=== PATIENT | male | born 1985 | race Caucasian/White ===

== ENCOUNTER 2019-04-27 22:01 | Emergency (ER) | payer SELFPAY ==
[2019-04-27 22:03] VITALS: BP 121/77; PULSE 90; RESP 17; TEMP 36.4; O2SAT 97; BMI 22.8
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
[2019-04-27 22:29] VITALS: PULSE 82
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
[2019-04-27] MEDS: HYDROcodone-acetaminophen 7.5-325 mg Tablet 1 TAB PO (22:45)
[2019-04-28 00:03] VITALS: BP 122/70; PULSE 88; RESP 16; TEMP 36.4; O2SAT 97
== END 2019-04-28 00:04 | disposition home or self-care (01) ==
PROVIDERS: Emergency Provider Physician Assistant; Family Provider Family Medicine; PCP Family Medicine
DX: S80.811A Abrasion, right lower leg, initial encounter (principal); T14.8XXA Other injury of unspecified body region, initial encounter; F17.200 Nicotine dependence, unspecified, uncomplicated; R40.2412 Glasgow coma scale score 13-15, at arrival to emergency department; V13.4XXA Pedal cycle driver injured in collision with car, pick-up truck or van in traffic accident, initial encounter; Y92.410 Unspecified street and highway as the place of occurrence of the external cause
CPT/HCPCS: 70450; 73502; 73590; 99281; 99283

== ENCOUNTER 2019-04-30 15:56 | Emergency (ER) | payer SELFPAY ==
[2019-04-30 16:10] VITALS: BP 121/67; PULSE 78; RESP 16; TEMP 36.4; O2SAT 99; BMI 22.8
[2019-04-30 16:27] VITALS: RESP 16
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
[2019-04-30] MEDS: HYDROcodone-acetaminophen 5-325 mg Tablet 1 TAB PO (17:06)
[2019-04-30 17:07] VITALS: PULSE 67; RESP 15; O2SAT 96
== END 2019-04-30 17:08 | disposition home or self-care (01) ==
PROVIDERS: Emergency Provider Emergency Medicine; Family Provider Family Medicine; PCP Family Medicine
DX: S80.12XA Contusion of left lower leg, initial encounter (principal); F17.200 Nicotine dependence, unspecified, uncomplicated; V13.4XXA Pedal cycle driver injured in collision with car, pick-up truck or van in traffic accident, initial encounter
CPT/HCPCS: 73562; 73590; 99281; 99283

== ENCOUNTER 2019-05-11 17:17 | Emergency (ER) | payer SELFPAY ==
[2019-05-11 17:29] VITALS: BP 73/50; PULSE 60; RESP 16; TEMP 36.4; O2SAT 98; BMI 21.2
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
[2019-05-11 17:43] VITALS: BP 94/63
--- NOTE | 2019-05-11 17:43 | PC.NURSE ---
Pts blood pressure 94/54
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
[2019-05-11] MEDS: acetaminophen 500 mg Tablet 1000 MG PO (20:04)
[2019-05-11 20:09] VITALS: BP 92/48; PULSE 73; RESP 16; O2SAT 98
== END 2019-05-11 20:13 | disposition home or self-care (01) ==
PROVIDERS: Emergency Provider Physician Assistant; Family Provider Family Medicine; PCP Family Medicine
DX: S49.92XA Unspecified injury of left shoulder and upper arm, initial encounter (principal); F17.200 Nicotine dependence, unspecified, uncomplicated; V18.0XXA Pedal cycle driver injured in noncollision transport accident in nontraffic accident, initial encounter
CPT/HCPCS: 12345; 73030; 99281; 99283

== ENCOUNTER 2019-07-23 11:49 | Emergency (ER) | payer SELFPAY ==
--- NOTE | 2019-07-23 11:52 | XR_ITS ---
WS: [id number] SHOULDER LEFT TECHNIQUE: 3 views of the left shoulder CLINICAL INFORMATION: injury COMPARISON: May 11, 2019 FINDINGS: Mild widening of the AC joint measuring 8 mm consistent with ligamentous injury. This is increased si nce May 11, 2019. No acute fractures. Normal visualized left humerus and glenohumeral joint. IMPRESSION: Mild widening of the AC joint consistent with ligamentous injury. No acute fractures.
[2019-07-23 12:10] VITALS: BP 124/77; PULSE 84; RESP 16; TEMP 36.6; O2SAT 97; BMI 24.3
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
--- NOTE | 2019-07-23 14:40 | DCPLANNER ---
loss control manager was asked to schedule a follow up appointment with ortho. loss control manager called the ortho clinic, spoke with Pat, gave clinic patients information. loss control manager was told that patients information would be printed and reviewed. Clinic will call caseworker protective services and patient with appointment information.
[2019-07-23 14:58] VITALS: BP 109/70; PULSE 75; RESP 18; O2SAT 99
--- NOTE | 2019-07-29 13:57 | DCPLANNER ---
Addendum entered by Arin Peterson 08/06/19 15:27: Patient did not attend appointment scheduled fro 07.30.19 with ortho. Original Note: Patient has a follow up appointment scheduled for Tuesday, July 30, [address] at 8:[address] Gallegos. Clinic will call patient with appointment information.
== END 2019-07-23 14:43 | disposition home or self-care (01) ==
PROVIDERS: Emergency Provider Physician Assistant
DX: S43.102A Unspecified dislocation of left acromioclavicular joint, initial encounter (principal); V19.9XXA Pedal cyclist (driver) (passenger) injured in unspecified traffic accident, initial encounter; F17.210 Nicotine dependence, cigarettes, uncomplicated
CPT/HCPCS: 12345; 73030; 99281; 99282

== ENCOUNTER 2020-10-15 05:35 | Emergency (ER) | payer SELFPAY ==
[2020-10-15 05:50] VITALS: BP 136/99; PULSE 91; RESP 17; TEMP 36.6; O2SAT 98; BMI 22.8
--- NOTE | 2020-10-15 05:58 | ED_ITS ---
HPI - Dental/Oral General: Chief complaint: Dental/Oral Stated complaint: Right Lower Jaw Swollen Time Seen by Provider: 10/15/20 05:58 History of Present Illness: HPI Narrative: Mr. Cordova is a 34-year-old gentleman with significant past medical history of lymphoma in remission who presents emergency department due to facial swelling. Onset was subacute approximately 1 day ago without known provoking factor. There is no known facial trauma. He has painful swelling which limits jaw opening on the right jaw. He endorses associated generalized malaise but no specific fevers. He has pain that radiates towards the right eye. Overall the intensity symptoms is moderate to severe. He has tried home medications without significant relief. No difficulty swallowing. No voice changes. He does have poor dentition and reports history of dental abscesses. No other specific exacerbating or alleviating factors Review of Systems General: Reports: 10 or more systems reviewed and unremarkable except in HPI and below Narrative: CONSTITUTIONAL: denies fever, weakness. Does have generalized malaise. EYES -mild right eye pain from radiation, denies loss of vision EARS -see HPI CARDIOVASCULAR - denies chest pain and palpitations RESPIRATORY - denies shortness of breath and cough GASTROINTESTINAL - denies abdominal pain, no nausea vomiting, no changes in bowel habits GENITOURINARY - denies dysuria or urinary frequency MUSCULOSKELETAL- denies deformity or pain SKIN - denies rashes or new changed skin lesions NEUROLOGIC - denies focal weakness or sensory changes HEMATOLOGIC/LYMPHATIC - denies easy bruising or lymphadenopathy. [facility] ED PFS: Medical History (Updated 10/15/20 @ 08:19 by Bob Piña MD) Lymphoma Social History Smoking and tobacco status: current every day smoker Physical Exam Narrative: EXAM NARRATIVE: GENERAL/CONSTITUTIONAL -mildly ill-appearing. Uncomfortable due to pain Eyes - PERRL, no conjunctival injection ENMT - Atraumatic external nose and ears. Moist mucous membranes. There is marked asymmetry about the mandibular region. Intraorally if there is extremely poor dentition. There is a area of induration, swelling, and likely abscess along the right posterior mandible however it becomes contiguous with the mandibular angle and the exact borders are somewhat unclear. There is no evidence of peritonsillar abscess. There is no evidence of boggy induration or other concerning signs of Ludewig's. NECK - supple. trachea midline CARDIOVASCULAR - regular rate and rhythm. Peripheral pulses 2+ and equal RESPIRATORY -clear to auscultation bilaterally. No retractions or accessory muscle use. ABDOMEN/GI - Nontender/Nondistended. No tenderness to percussion or evidence of peritonitis MSK - Extremities without obvious deformity or tenderness to palpation SKIN - Warm, Dry NEURO - alert and appropriately oriented. strength and sensation intact. Moves all extremities equally. PSYCH - Appropriate mood and affect Course ED course: - Patient was seen and evaluated by me at bedside - Patient placed on cardiac monitors, IV access obtained - Initial evaluation notable for facial swelling of the right side the face with mild trismus, there is prominence of the soft tissues along the right gingival b order adjacent to the molars. There is marked poor dentition. - I ordered a contrasted CT scan study and labs however the patient adamantly refused IV access. - Imaging notable for no definitive drainable fluid collection - Upon serial reexamination after treatment the patient was mildly improved with analgesia - Based on patient history, evaluation, labs, and imaging as interpreted the most likely cause of the patient's condition is cellulitis/dental infection. - I discussed with the patient that without labs and a contrasted CT study I cannot completely evaluate his condition and that there were inherent risks including significant clinical worsening up to . He verbalized understanding and wished to continue with no IV access or labs. He is competent to make this decision regarding his health care at this time. - First dose of antibiotics ordered here. - The results of ED evaluation were discussed with the patient including prescriptions and/or symptomatic cares including appropriate and responsible use, followup plan, and return precautions. The patient verbalized understanding and felt safe for discharge. - Patient discharged in satisfactory condition. Vital Signs: Vital signs: Vital Signs Temperature 97.8 F 10/15/20 05:50 Pulse Rate 74 10/15/20 08:30 Respiratory Rate 16 10/15/20 08:30 Blood Pressure 151/102 10/15/20 08:30 Pulse Oximetry 99 10/15/20 08:30 [facility] - Dental/Oral Medical Records: Attestation: I reviewed the patient's medical records. Lab Data: Attestation: I reviewed the patient's lab results. Discharge Plan Discharge Patient Disposition: Home Clinical Impression: Dental infection Condition: Stable Prescriptions: New Augmentin 875-125 mg tablet 1 tab PO BID 14 Days Qty: 28 RF: 0 oxycodone 5 mg capsule 5 mg PO Q6H PRN (Reason: pain) Qty: 7 RF: 0 No Action tramadol 50 mg tablet 50 mg PO Q6H PRN (Reason: pain) Qty: 14 RF: 0 Discharge Orders: Discharge ED (Routine); Ordered 10/15/20 Ordered By: Bob Piña Discharge Diet: Usual diet Discharge Activity: Resume usual activity Patient Instructions: Dental Caries (ED), Cellulitis (ED), Opioid Safety Activity Restrictions/Additional Instructions: Thank you for visiting the emergency department. You were seen and evaluated for facial swelling and pain. The cause of this is likely to be infection related to poor oral health. There is no drainable fluid collection. You will be given a prescription for antibiotics and pain control. You may use Tylenol and ibuprofen or other NSAIDs however please do not exceed the daily recommended dosage. Please follow-up within the next few days with the dentist. Please follow-up with your primary care provider. Please return to the emergency department if you experience worsening her symptoms, increase spread, difficulty swallowing, voice changes, difficulty breathing, uncontrolled pain or symptoms, failure to improve, or anything else that you are concerned about and feel needs emergency department evaluation. We recommended lab work and a contrasted IV however you declined IV. You may return to the emergency department for any reason anytime. Coding Level of Care Code ED Toxicologist for Tessa Bowen
--- NOTE | 2020-10-15 06:04 | CTR_ITS ---
PROCEDURE INFORMATION: Exam: CT Neck Without Contrast Exam date and time: 10/15/2020 6:04 AM Age: 34 years old Clinical indication: Other: RT jaw pain; Additional info: Facial swelling, concern for deep tracking infection TECHNIQUE: Imaging protocol: Computed tomography images of the neck without contrast. Total images: 258 Radiation optimization: All CT scans at this facility use at least one of these dose optimization techniques: automated exposure control; mA and/or kV adjustment per patient size (includes targeted exams where dose is matched to clinical indication); or iterative reconstruction. COMPARISON: CT neck con [id number] 06/08/2017 10:49 PM RADIATION DOSE METRICS: Total DLP (mGy-cm): 401.8 FINDINGS: Paranasal sinuses: Benign mucous retention cyst in the left maxillary paranasal sinus. Nasopharynx: Unremarkable. Dental: Odontogenic disease, including periapical abscess formation adjacent to tooth roots. Oropharynx: Mildly enlarged tonsils. Hypopharynx: Unremarkable. Larynx: Unremarkable. Normal epiglottis. Retropharyngeal space: No prevertebral/retropharyngeal pathology. Submandibular/Parotid glands: Normal. Glands are normal in size. Thyroid: Normal. No enlarged or calcified nodules. Lymph nodes: Unremarkable. No lymphadenopathy. Trachea: Visualized trachea is unremarkable. Lungs: Mild centrilobular emphysematous changes are present. Bones/joints: Unremarkable. No acute fracture. Soft tissues: Soft tissue swelling and fatty stranding noted adjacent to the right mandible. CT/CT neck con [id number] IMPRESSION: 1. Soft tissue swelling and fatty stranding noted adjacent to the right mandible. 2. Odontogenic disease, including periapical abscess formation adjacent to tooth roots. 3. Mildly enlarged tonsils. 4. Mild centrilobular emphysematous changes are present. Radiation Dose CTDIVOL = (mGy): DLP = 401.8 (mGy-cm)
[2020-10-15] MEDS: oxyCODONE 5 mg IR Tab/Cap PO (07:05)
[2020-10-15 07:07] VITALS: BP 146/90; PULSE 89; RESP 18; O2SAT 98
[2020-10-15] MEDS: amoxicillin-clav 875-125 mg Tablet 1 TAB PO (08:24)
[2020-10-15 08:30] VITALS: BP 151/102; PULSE 74; RESP 16; O2SAT 99
== END 2020-10-15 08:31 | disposition home or self-care (01) ==
PROVIDERS: Emergency Provider Emergency Medicine
DX: K04.7 Periapical abscess without sinus (principal); Z85.72 Personal history of non-Hodgkin lymphomas; F17.210 Nicotine dependence, cigarettes, uncomplicated
CPT/HCPCS: 70490; 99283

== ENCOUNTER 2021-01-17 13:16 | Emergency (ER) | payer SELFPAY ==
[2021-01-17 13:20] VITALS: BP 119/76; PULSE 94; RESP 15; TEMP 36.7; O2SAT 98; BMI 21.2
--- NOTE | 2021-01-17 13:22 | US_ITS ---
WS: [id number] SCROTAL ULTRASOUND EXAMINATION CLINICAL INFORMATION: pain COMPARISON: None. FINDINGS: TESTES Normal in size and echotexture, without focal lesion. Color Doppler: Normal color Doppler flow pattern. Right testes size: 4.3 cm x 3.4 cm x 2.7 cm. Left testes size: 4.2 cm x 3.1 cm x 2.2 cm. EPIDIDYMIDES Enlarged right epididymis with increased vascularity compatible with epididymitis. Small left epididymal cysts. Right epididymis size: 1.3 cm x 1.6 cm x 1.3 cm. Left epididymitis size: 0.9 cm x 0.8 cm x 0.9 cm. HYDROCELE Small bilateral VARICOCELE None. OTHER FINDINGS None. US/US scrotum [id number] IMPRESSION: 1. Findings compatible with right epididymitis. 2. Small bilateral hydroceles. 3. Left epididymal cyst measuring 5.9 x 5.1 mm. 4. Normal testicular echogenicity and vascularity.
[2021-01-17 14:17] VITALS: BP 110/71; PULSE 89; RESP 18; O2SAT 98
--- NOTE | 2021-01-17 14:21 | ED_ITS ---
HPI - Male Genitourinary General: Chief complaint: Urogenital-Male Stated complaint: TESTICAL PAIN X 2DAYS Time Seen by Provider: 01/17/21 14:14 Source: patient Mode of arrival: ambulatory Limitations: no limitations History of Present Illness: HPI Narrative: 35-year-old male states he been having right testicle pain for last 2 days he states he has had swelling of the last 2 days as well states it has been quite painful and rates his pain a 6 out of 10 worse with palpation improved with rest. Denies any difficulty urinating denies any penile discharge denies any history of any STDs that he knows of. Denies any vomiting or diarrhea. Associated symptoms: Deny nausea or vomiting Review of Systems Const: Denies: fever(s), chills, body aches or change in appetite Eyes: Denies: blurry vision or eye discomfort ENMT: Denies: throat pain or dental pain Card: Denies: chest pain Resp: Denies: dyspnea GI: Denies: abdominal pain, nausea, vomiting or diarrhea : Reports: testicular pain Musc: Denies: neck pain or back pain Skin/Breast: Denies: rash Neuro: Denies: headache(s) Psych: Denies: depression Jean Carlos/Lymph: Denies: easy bruising All/Imm: Denies: urticaria PFSH ED PFSH: Medical History (Updated 01/17/21 @ 14:22 by Ree Walsh MD) Lymphoma Social History Smoking and tobacco status: current every day smoker Physical Exam Const: COMMON NORMALS: no acute distress, patient oriented x3 and healthy appearing HENMT: COMMON NORMALS: normocephalic and atraumatic HEAD & SCALP: normocephalic and atraumatic Eye: COMMON NORMALS: Equal, round and reactive pupils present and EOMs intact bilaterally PUPIL: Yes Equal, round and reactive pupils present Neck/C-Spine: COMMON NORMALS: full ROM and supple Chest: COMMONS NORMALS: normal inspection of the chest and normal palpation of entire chest wall Resp: COMMON NORMALS: normal respiratory effort, No retractions, No use of accessory muscles and clear to auscultation bilaterally AUSCULTATION: clear to auscultation bilaterally Cardio: COMMON NORMALS: regular rate, regular rhythm and No murmurs present (Cardio) RATE: regular rate RHYTHM: regular rhythm GI: COMMON NORMALS: Normal to inspection, nondistended, normoactive bowel sounds present, Soft to palpation, non-tender and no masses PALPATION: Yes Soft to palpation : OTHER: Swelling to right testicle over the epididymis tender to right epididymis no signs of torsion Extremity: COMMON NORMALS: normal to inspection and full ROM Neuro: COMMON NORMALS: patient oriented x3, moves all extremities and no focal motor deficits Psych: COMMON NORMALS: mental status grossly normal, Normal thought process present and cooperative THOUGHT PROCESS: Normal thought process present Skin: COMMON NORMALS: no rashes or lesions noted and no wounds GENERAL SKIN EXAM: no rashes or lesions noted Course Vital Signs: Vital signs: Vital Signs Temperature 98.1 F 01/17/21 13:20 Pulse Rate 89 01/17/21 14:17 Respiratory Rate 18 01/17/21 14:17 Blood Pressure 110/71 01/17/21 14:17 Pulse Oximetry 98 01/17/21 14:17 MDM - Male MDM Narrative: Medical decision making narrative: Patient presents with epididymitis exam is consistent with that as well. Will prescribe him pain meds and doxycycline. He is well-appearing here is no signs of torsion he is follow- up his PCP in 7 to 10 days return if worsening understands agrees to plan. Imaging Data: US: Attestation: I personally reviewed and interpreted this imaging study as follows: Radiologist's impression: [address] [address] Ultrasound Report Signed Patient: Lukas Cordova Unit #: [id number] : 1985 Age/Sex: 35 / M ADM Date: 01/17/21 Loc: ER Room/Bed: Attending Dr: Ordering Provider/Ordering MD: Ree Walsh MD Date of Service: 01/17/21 Procedure(s): US scrotum [id number] Accession Number(s): [id number] Report Number: [id number] WS: [id number] SCROTAL ULTRASOUND EXAMINATION CLINICAL INFORMATION: pain COMPARISON: None. FINDINGS: TESTES Normal in size and echotexture, without focal lesion. Color Doppler: Normal color Doppler flow pattern. Right testes size: 4.3 cm x 3.4 cm x 2.7 cm. Left testes size: 4.2 cm x 3.1 cm x 2.2 cm. EPIDIDYMIDES Enlarged right epididymis with increased vascularity compatible with epididymitis. Small left epididymal cysts. Right epididymis size: 1.3 cm x 1.6 cm x 1.3 cm. Left epididymitis size: 0.9 cm x 0.8 cm x 0.9 cm. HYDROCELE Small bilateral VARICOCELE None. OTHER FINDINGS None. US/US scrotum [id number] IMPRESSION: 1. Findings compatible with right epididymitis. 2. Small bilateral hydroceles. 3. Left epididymal cyst measuring 5.9 x 5.1 mm. 4. Normal testicular echogenicity and vascularity. Dictated By: Murray Dougherty MD Signed By: Murray Dougherty MD Signed Date/Time: 01/17/211404 DD/ 00 Discharge Plan Discharge Patient Disposition: Home Clinical Impression: Epididymitis Condition: Stable Prescriptions: New hydrocodone-acetaminophen 5-325 mg tablet 1 tab PO Q6H PRN (Reason: pain) Qty: 14 RF: 0 doxycycline hyclate 100 mg tablet 100 mg PO BID 14 Days Qty: 28 RF: 0 No Action tramadol 50 mg tablet 50 mg PO Q6H PRN (Reason: pain) Qty: 14 RF: 0 oxycodone 5 mg capsule 5 mg PO Q6H PRN (Reason: pain) Qty: 7 RF: 0 Discharge Orders: Discharge ED (Routine); Ordered 01/17/21 Ordered By: Ree Walsh Discharge Diet: Advance as tolerated Discharge Activity: Resume usual activity Patient Instructions: Epididymitis (ED), Opioid Safety Coding Level of Care Code ED Mammal Control Agent for Tessa Bowen
[2021-01-17] MEDS: HYDROcodone-acetaminophen 7.5-325 mg Tablet 1 TAB PO (14:35)
[2021-01-17 14:37] VITALS: BP 103/62; PULSE 86; RESP 18; O2SAT 99
== END 2021-01-17 14:37 | disposition home or self-care (01) ==
PROVIDERS: Emergency Provider Emergency Medicine
DX: N45.1 Epididymitis (principal); Z85.72 Personal history of non-Hodgkin lymphomas; F17.210 Nicotine dependence, cigarettes, uncomplicated
CPT/HCPCS: 76870; 93976; 99283

== ENCOUNTER 2023-02-18 12:30 | Emergency (ER) | payer SELFPAY ==
--- NOTE | 2023-02-18 12:31 | ED_ITS ---
HPI - Extremity Injury (Upper) General: Chief Complaint: Back Pain/Injury Stated Complaint: Health Check Time Seen by Provider: 02/18/23 12:31 Source: patient and police Mode of arrival: other (police) Limitations: no limitations History of Present Illness: Patient is a 37-year-old male who arrives to the ED today in police custody for evaluation of left shoulder pain and upper back pain that he states started after the police were rough on him when they were arresting him. He seems to avoid my questioning when asked if he resisted arrest. Patient has a history of AC separation to the left shoulder back in 2019. I do not see where this was ever followed up with outside of the emergency department. He has no other complaints or injuries at this time. MD complaint: injury to: left and shoulder Onset (ago): hour(s) Other Extremity Injury: Left: shoulder Other injuries: back Place: outdoors Severity: moderate Relieving factors: immobilization Exacerbating factors: movement of extremity Context: other (resisting around; thrown to ground by police) Associated symptoms: Reports no associated symptoms; Denies neck pain or weakness in extremities Review of Systems Card: Denies: chest pain Resp: Denies: dyspnea GI: Denies: abdominal pain Musc: Reports: back pain and joint pain (L shoulder); Denies: neck pain, extremity pain, extremity swelling, joint swelling, joint redness or joint warmth Neuro: Denies: headache(s), numbness in extremities, weakness in extremities or sensory changes [facility] ED PFSH: Medical History Lymphoma Social History Smoking and tobacco/nicotine status: current every day tobacco/nicotine user Physical Exam Const: COMMON NORMALS: no acute distress, patient oriented x3, no limitations, alert and well nourished GENERAL APPEARANCE: appears older than stated age ORIENTATION/CONSCIOUSNESS: Yes awake, Yes oriented to person, Yes oriented to place and Yes oriented to time HENMT: COMMON NORMALS: normocephalic and atraumatic HEAD & SCALP: normal to inspection, normocephalic and atraumatic FACE & SINUS: normal facial exam Neck/C-Spine: COMMON NORMALS: full ROM GENERAL: Yes normal visual inspection CERVICAL SPINE: No Cervical spine tenderness Chest: COMMONS NORMALS: normal inspection of the chest Back/Pelvis: COMMON NORMALS: thoraco-lumbar ROM normal and straight leg raise negative bilaterally THORACIC SPINE/UPPER BACK: Yes thoracic ROM normal, Yes thoracic spinal tenderness (upper T spine), No paraspinal muscle tenderness and No paraspinal muscle spasm LUMBAR SPINE/LOWER BACK: Yes normal to inspection, No lumbar spinal tenderness, No paraspinal muscle tenderness and No paraspinal muscle spasm PELVIS: Yes buttocks normal SACRUM: no tenderness COCCYX: no tenderness Extremity: COMMON NORMALS: capillary refill normal, no joint enlargement, no clubbing, cyanosis or edema, no calf tenderness and no pedal edema GENERAL: Yes normal exam except as noted LEFT UPPER EXTREMITY: Yes shoulder joint (AC widening consistent with previous injury/separation) Left shoulder joint: Yes ROM (limited) and Yes neurovascular exam (normal) Neuro: COMMON NORMALS: patient oriented x3, moves all extremities, no focal motor deficits and no sensory deficits noted SENSORIUM/ORIENTATION: Yes alert, Yes oriented to person, Yes oriented to place and Yes oriented to time Skin: COMMON NORMALS: no rashes or lesions noted GENERAL SKIN EXAM: no rashes or lesions noted Course Vital Signs: Vital signs: Vital Signs Temperature 98.4 F 02/18/23 12:38 Pulse Rate 104 H 02/18/23 12:38 Blood Pressure 116/80 02/18/23 12:38 Pulse Oximetry 98 02/18/23 12:38 Oxygen Delivery Me thod Room Air 02/18/23 12:38 MDM - Extremity Injury (Upper) Medical Decision Making XRs negative for acute injury or trauma. Chronic L shoulder AC separation. Patient will be discharged back into police custody. Medical Records I reviewed the patient's medical records. XR interpretation done by ED provider, pending radiology final review Discharge Plan Discharge Patient Disposition: Home Clinical Impression: Upper back pain Left shoulder pain Qualifiers: Chronicity: acute Qualified Code(s): M25.512 - Pain in left shoulder Condition: Stable Prescriptions: No Action tramadol 50 mg tablet 50 mg PO Q6H PRN (Reason: pain) Qty: 14 0RF oxycodone 5 mg capsule 5 mg PO Q6H PRN (Reason: pain) Qty: 7 0RF hydrocodone-acetaminophen 5-325 mg tablet 1 tab PO Q6H PRN (Reason: pain) Qty: 14 0RF Discharge Orders: Discharge ED (Routine); Ordered 02/18/23 Ordered By: Yaritza Lerma Referrals: Jax Rowley MD [Primary Care Provider] - Activity Restrictions/Additional Instructions: Your x-rays here were negative for acute fracture. You are being released into police custody. Coding Level of Care Code ED Machine Inspector for Tessa Bowen
--- NOTE | 2023-02-18 12:35 | XR_ITS ---
WS: [id number] Left shoulder, 3 views, 02/18/2023 Clinical Data: injury Comparison: Left shoulder, 07/23/2019 Findings: The widening of the AC joint and elevation of the acromion has not changed. The glenohumeral joint shows no abnormalities. The adjacent left scapula and ribs are unremarkable. Impression: No change in left AC joint widening and elevation.
--- NOTE | 2023-02-18 12:35 | XR_ITS ---
WS: [id number] Thoracic spine, 2 views, 02/18/2023 Clinical Data: injury Comparison: Thoracic spine, 04/21/2017 Findings: No compression fractures are seen. The disc heights are normal. The paravertebral regions are normal. Impression: Negative thoracic spine.
[2023-02-18 12:38] VITALS: BP 116/80; PULSE 104; TEMP 36.9; O2SAT 98; BMI 19.8
[2023-02-18 13:23] VITALS: BP 116/80; PULSE 104; TEMP 36.9; O2SAT 98
== END 2023-02-18 13:24 | disposition home or self-care (01) ==
PROVIDERS: Emergency Provider Physician Assistant; PCP Family Medicine
DX: M25.512 Pain in left shoulder (principal); M54.6 Pain in thoracic spine; Z85.72 Personal history of non-Hodgkin lymphomas; Z72.0 Tobacco use
CPT/HCPCS: 72072; 73030; 99284

== ENCOUNTER 2023-09-26 08:39 | Emergency (ER) | payer SELFPAY ==
[2023-09-26 08:41] VITALS: BP 136/91; PULSE 108; RESP 18; TEMP 36.7; O2SAT 95
--- NOTE | 2023-09-26 08:47 | PC.PHAR ---
PT HAS NO CURRENT MEDICATIONS. LAST MED FILLED WAS TRAMADOL 50 MG Q6H PRN PAIN 07/22/21
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
[2023-09-26 10:27] LABS: Basophils # 0.1 10^3/uL (0.0-0.1); Basophils % 0.6 %; Eosinophils # 0.4 10^3/uL (0.0-0.8); Eosinophils % 3.6 %; Hematocrit 44.1 % (37-53); Lymphocytes # 1.7 10^3/uL (0.8-4.8); Lymphocytes % 17.3 %; Mean Corpuscular HGB Conc 33.3 g/dL (30-55); Mean Corpuscular Hemoglobin 29.4 pg (27-33); Mean Corpuscular Volume 88.2 fl (82-101); Mean Platelet Volume 9.6 fL (7.4-10.4); Monocytes # 0.8 10^3/uL (0.2-0.9); Monocytes % 8.6 %; Neutrophils # 6.75 10^3/uL (1.8-7.7); Neutrophils % 69.5 %; Nucleated Red Blood Cells % 0 %; Platelet Count 282 10^3/cmm (157-399); Red Cell Distribution Width 12.8 % (12.1-15.1); White Blood Count 9.72 10^3/uL (3.29-11.43)
[2023-09-26 10:40] LABS: Alanine Aminotransferase 16 U/L (0-41); Albumin Level 4.6 g/dL (3.5-5.2); Alkaline Phosphatase 71 U/L (40-130); Aspartate Amino Transferase 25 U/L (0-40); Blood Urea Nitrogen 15 mg/dL (6-20); Calcium 9.6 mg/dL (8.5-10.5); Carbon Dioxide 29 mmol/L (22-29); Chloride 101 mmol/L (98-107); Glucose 109 mg/dL (65-115); Osmolality Calculated 291 mOsm/kg (285-295); Sodium 140 mmol/L (136-145); Total Bilirubin 0.6 mg/dL (0.15-1.2); Total Protein 7.6 g/dL (6.6-8.7)
[2023-09-26 10:44] LABS: Acetaminophen < 5.0 ug/mL (10-30)
[2023-09-26 10:47] VITALS: BP 136/91; PULSE 108; RESP 18; TEMP 36.7; O2SAT 95
== END 2023-09-26 10:48 | disposition home or self-care (01) ==
PROVIDERS: Emergency Provider Family Medicine; PCP Family Medicine
DX: Z63.0 Problems in relationship with spouse or partner (principal); Z85.72 Personal history of non-Hodgkin lymphomas; Z72.0 Tobacco use
CPT/HCPCS: 36415; 80053; 80307; 85025; 99283

== ENCOUNTER 2023-10-06 00:07 | Emergency (ER) | payer MEDICAID, OTHER, SELFPAY ==
[2023-10-06 00:13] VITALS: BP 146/74; PULSE 89; RESP 17; TEMP 36.6; O2SAT 99; BMI 19.8
--- NOTE | 2023-10-06 01:15 | ED_ITS ---
HPI - Back Pain/Injury 2 General: Chief Complaint: Back Pain/Injury Stated Complaint: Fall, can't walk now Time Seen by Provider: 10/06/23 00:55 History of Present Illness: Patient is a nontoxic 37-year-old male who presents to the ER with complaints of left-sided low back pain. He states that around 7 PM this evening he was lifting something up that was not particularly heavy but felt a sudden shooting pain in the left side of his low back. He states he has pain with movement of his left leg. He denies any radiculopathy of the legs but states he felt like his legs were weak. He denies any urinary incontinence or retention. No saddle anesthesia. He took an ibuprofen for his pain earlier but continues to have pain with any twisting or turning or positional changes. MD elicited complaint: back pain and back injury Associated symptoms: Deny abdominal pain, chills, fever(s), nausea or vomiting Review of Systems 2 Const: Denies: fever(s), chills or diaphoresis Card: Denies: chest pain Resp: Denies: dyspnea GI: Denies: abdominal pain, nausea or vomiting Skin/Breast: Denies: rash Neuro: Denies: headache(s) PFSH ED 2 PFSH: Medical History Lymphoma Social History Smoking and tobacco/nicotine status: current every day tobacco/nicotine user Physical Exam 2 Const: COMMON NORMALS: no acute distress, average body habitus, alert and well nourished GENERAL APPEARANCE: cooperative ORIENTATION/CONSCIOUSNESS: Yes awake OTHER: Nontoxic 37-year-old male cuddled up on the stretcher with his significant other in no acute distress HENMT: COMMON NORMALS: normocephalic and atraumatic HEAD & SCALP: n ormocephalic and atraumatic Neck/C-Spine: GENERAL: Yes normal visual inspection Resp: COMMON NORMALS: normal respiratory effort, No retractions and No use of accessory muscles Cardio: COMMON NORMALS: regular rhythm and Peripheral pulses 2+ throughout RHYTHM: regular rhythm PERIPHERAL PULSES: Peripheral pulses 2+ throughout GI: COMMON NORMALS: Soft to palpation and non-tender PALPATION: Yes Soft to palpation OTHER: Patient adamantly refuses digital rectal exam Back/Pelvis: COMMON NORMALS: thoracic and lumbar spine normal to inspection BACK IMAGE (MALE): 1. Patient has primarily left low back paraspinous tenderness. No midline spinal tenderness of the cervical, thoracic, or lumbar spine. No step-offs. Extremity: COMMON NORMALS: normal to inspection, full ROM and no pedal edema OTHER: Patient reports pain in his left side low back with elevation of the left lower extremity but has 5 out of 5 strength in bilateral lower extremities. 2+ patellar reflexes bilaterally. 2+ DP and PT pulses bilaterally. Patient ambulated in the room and out of the ER. Neuro: COMMON NORMALS: no focal motor deficits SENSORIUM/ORIENTATION: Yes alert Psych: COMMON NORMALS: mental status grossly normal Skin: COMMON NORMALS: no rashes or lesions noted GENERAL SKIN EXAM: no rashes or lesions noted Course 2 Vital Signs: Vital signs: Vital Signs Temperature 98 F 10/06/23 00:13 Pulse Rate 89 10/06/23 00:13 Respiratory Rate 17 10/06/23 00:13 Blood Pressure 146/74 10/06/23 00:13 Pulse Oximetry 99 10/06/23 00:13 Oxygen Delivery Me thod Room Air 10/06/23 00:13 MDM - Back Pain/Injury Medical Decision Making Patient is a nontoxic 37-year-old male who reports acute left-sided low back pain after lifting something up this evening around 7 PM. He has pain with positional changes and with ambulation. He has an antalgic gait but is able to ambulate without any difficulty. He has 5 out of 5 strength in all 4 extremities. He adamantly refuses a digital rectal exam. I had a lengthy discussion with the patient and his mother was in the room at the time of the discussion and regarding the limitations of his evaluation without digital rectal exam. He expressed understanding and states there is nothing wrong with his spine and does not want a rectal exam. He declined IM Toradol, dexamethasone, and cyclobenzaprine. He states he did not want a shot and just wanted to prescription. I will go ahead and prescribe him naproxen and cyclobenzaprine and have him follow-up with his PCP and discuss outpatient MRI and physical therapy evaluation. Differential Diagnosis Likely lumbar radiculopathy and strain of lumbar region No radiology studies performed this visit Discharge Plan Discharge Patient Disposition: Home Clinical Impression: Strain of lumbar region Condition: Stable Prescriptions: New naproxen 500 mg tablet 500 mg PO BID PRN (Reason: pain) Qty: 20 0RF cyclobenzaprine 10 mg tablet 10 mg PO BID PRN (Reason: muscle spasm) Qty: 20 0RF Discharge Orders: Discharge ED (Routine); Ordered 10/06/23 Ordered By: Isac Alberts Discharge Diet: Advance as tolerated Patient Instructions: Pain Management, Low Back Strain (ED) Activity Restrictions/Additional Instructions: You may take Tylenol or naproxen that has been prescribed to you for pain. You have also been prescribed Flexeril which is a muscle relaxant to help with pain. You may alternate warm and cool compresses to the affected area to help with discomfort. Follow-up with your primary care provider to discuss physical therapy referral for continued low back pain and further evaluation with MRI if your pain is persistent. Return for any concerns. Coding Level of Care Code ED Executive Vice President And Chief Operating Officer for Tessa Bowen
[2023-10-06 01:27] VITALS: BP 146/74; PULSE 89; RESP 17; TEMP 36.6; O2SAT 99
== END 2023-10-06 01:28 | disposition home or self-care (01) ==
PROVIDERS: Emergency Provider Student in an Organized Health Care Education/Training Program
DX: S39.012A Strain of muscle, fascia and tendon of lower back, initial encounter (principal); X50.9XXA Other and unspecified overexertion or strenuous movements or postures, initial encounter
CPT/HCPCS: 99283

== ENCOUNTER 2024-05-22 18:32 | Emergency (ER) | payer SELFPAY ==
[2024-05-22 18:36] VITALS: BP 148/89; PULSE 99; RESP 16; TEMP 36.3; O2SAT 97; BMI 22.6
--- NOTE | 2024-05-22 19:17 | CTR_ITS ---
PROCEDURE INFORMATION: Exam: CT Head Without Contrast Exam date and time: 05/22/2024 7:36 PM Age: 38 years old Clinical indication: EMS arrival for seizure activity. History of seizure disorder. 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 Radiation optimization: All CT scans at this facility use at least one of these dose optimization techniques: automated exposure control; mA and/or kV adjustment per patient size (includes targeted exams where dose is matched to clinical indication); or iterative reconstruction. COMPARISON: CT head wo con* [id number] 04/27/2019 11:24 PM RADIATION DOSE METRICS: Total DLP (mGy-cm): 1047.76 FINDINGS: Brain: Normal. No hemorrhage. Unremarkable white matter. No mass effect. Cerebral ventricles: No ventriculomegaly. Paranasal sinuses: Visualized sinuses are unremarkable. No fluid levels. Mastoid air cells: Visualized mastoid air cells are well aerated. Bones: Unremarkable. No acute fracture. Soft tissues: Unremarkable. CT/CT head wo con* [id number] IMPRESSION: No acute intracranial abnormality. No interval change.
--- NOTE | 2024-05-22 19:20 | W.ED.SEIZURE ---
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 Seizure History: Yes Place: Outdoors Associated symptoms: Deny chest pain, chills, fever(s) or malaise Related Data Previous Rx's ?Medication ?Instructions ?Recorded cyclobenzaprine 10 mg tablet 10 mg PO BID PRN muscle spasm #20 10/06/23 tabs naproxen 500 mg tablet 500 mg PO BID PRN pain #20 tabs 10/06/23 levetiracetam 500 mg tablet 500 mg PO BID 2 weeks #28 tabs 05/22/24 (Keppra) Allergies Allergy/AdvReac Type Severity Reaction Status Date / Time aspirin Allergy Unknown Verified 10/06/23 00:17 Review of Systems General: Reports: 10 or more systems reviewed and unremarkable except in HPI and below Const: Denies: fever(s), chills, fatigue or malaise Eyes: Denies: change in vision or blurry vision Card: Denies: chest pain or palpitations Resp: Denies: dyspnea or productive cough GI: Denies: abdominal pain, nausea or vomiting : Denies: flank pain Musc: Denies: extremity pain or extremity swelling Skin/Breast: Denies: rash or pruritus Neuro: Reports: other (Reports seizures); Denies: headache(s) Psych: Denies: anxiety or depression Jean Carlos/Lymph: Denies: easy bleeding All/Imm: Denies: urticaria, throat swelling or facial swelling PFS ED PFSH: Medical History Lymphoma Social History Smoking and tobacco/nicotine status: current every day tobacco/nicotine user Physical Exam Const: COMMON NORMALS: no acute distress, patient oriented x3 and healthy appearing (Patient is having no focal neurodeficits none postictal alert oriented x 3 ) HENMT: COMMON NORMALS: normocephalic and atraumatic HEAD & SCALP: normocephalic and atraumatic Eye: COMMON NORMALS: Equal, round and reactive pupils present and EOMs intact bilaterally PUPIL: Yes Equal, round and reactive pupils present Neck/C-Spine: COMMON NORMALS: full ROM, supple and no JVD Lymph: LYMPHATIC: no lymphadenopathy noted Chest: COMMONS NORMALS: normal inspection of the chest and normal palpation of entire chest wall Resp: COMMON NORMALS: normal respiratory effort, No retractions and clear to auscultation bilaterally EFFORT & INSPECTION: Yes able to speak in complete sentences and Yes symmetric chest movement AUSCULTATION: clear to auscultation bilaterally Cardio: COMMON NORMALS: no JVD, regular rate and regular rhythm RATE: regular rate RHYTHM: regular rhythm GI: COMMON NORMALS: Normal to inspection, nondistended, normoactive bowel sounds present, Soft to palpation and non-tender INSPECTION: Yes normal to inspection PALPATION: Yes Soft to palpation : COMMON NORMALS: Yes no CVA tenderness BLADDER/KIDNEY EXAM: Yes no CVA tenderness Back/Pelvis: COMMON NORMALS: no CVA tenderness Extremity: COMMON NORMALS: normal to inspection and full ROM Neuro: COMMON NORMALS: patient oriented x3, CN's II-XII intact bilaterally, moves all extremities and no focal motor deficits Psych: COMMON NORMALS: mental status grossly normal, Normal thought process present, cooperative and normal affect THOUGHT PROCESS: Normal thought process present Skin: COMMON NORMALS: no rashes or lesions noted GENERAL SKIN EXAM: no rashes or lesions noted Course Vital Signs: Vital signs: Vital Signs Temperature 97.4 F L 05/22/24 18:36 Pulse Rate 99 05/22/24 18:36 Respiratory Rate 16 05/22/24 18:36 Blood Pressure 120/85 05/22/24 20:09 Pulse Oximetry 97 05/22/24 20:09 Oxygen Delivery Me thod Room Air 05/22/24 18:36 MDM - Seizure MDM Narrative Medical decision making narrative: Discussed patient with the patient at length patient refusing lab work to be drawn he reports he gets the seizures quite frequently in which the group freaked out he denies being on any current medications for epilepsy or his seizures however I was able to discuss the need for a CT of the head without IV contrast of the patient has excepted. Will continue to follow and do a observation period over the next hour to 2 hours and observe the patient to determine no additional seizure concerns will continue to follow. Patient was observed no additional seizure-like activity was witnessed. Patient still is adamant about refusing additional lab work imaging however came back unremarkable occluding a CT imaging of the head without contrast at this time patient appears to be stable for discharge back I did advise further follow-up with neurology if he has a history of seizures and seizure disorder to get reestablished on his medication regimen in the meanwhile will be temporarily starting him on some Keppra. I did advise he return the interim if any of his symptoms persist or worse. Lab Data Labs: Radiology Impressions Head CT 05/22/24 19:17 IMPRESSION: No acute intracranial abnormality. No interval change. All radiology interpretation(s) finalized by discharge Discharge Plan Discharge Patient Disposition: Home Clinical Impression: Generalized seizure Condition: Stable Prescriptions: New levetiracetam [Keppra] 500 mg tablet 500 mg PO BID 14 Days Qty: 28 0RF No Action naproxen 500 mg tablet 500 mg PO BID PRN (Reason: pain) Qty: 20 0RF cyclobenzaprine 10 mg tablet 10 mg PO BID PRN (Reason: muscle spasm) Qty: 20 0RF Discharge Orders: Discharge ED (Routine); Ordered 05/22/24 Ordered By: Jet Copeland Referrals: Fallon Estrada MD [Physician] - 1-3 days Discharge Diet: Advance as tolerated Discharge Activity: Increase activity as tolerated Patient Instructions: Recurrent Seizures in Adults (ED), Seizures Activity Restrictions/Additional Instructions: Take medications as prescribed please further follow-up with neurology for further assessment management of your seizures and was to return the interim if any of your symptoms persist or worse Print Language: Italian Coding Level of Care Code ED Clinical Project Manager for Tessa Bowen
[2024-05-22 19:36] VITALS: BP 122/81
[2024-05-22 20:09] VITALS: BP 120/85; O2SAT 97
== END 2024-05-22 21:02 | disposition home or self-care (01) ==
PROVIDERS: Emergency Provider Emergency Medicine
DX: G40.89 Other seizures (principal); Z72.0 Tobacco use
CPT/HCPCS: 70450; 99284

== ENCOUNTER 2024-06-11 12:44 | Outpatient (CLI) | payer MEDICAID, SELFPAY ==
--- NOTE | 2024-06-11 12:50 | XR_ITS ---
WS: [id number] Exam: [place] [id number] Date/Time of Exam: 06/11/2024 12:51 PM Reason For Exam: FX OF L CLAVICAL Comparison with the LEFT shoulder radiographs 02/18/2023. There is separation and superior displacement of the distal end of the LEFT clavicle both with and without weightbearing. The RIGHT AC joint is unremarkable. Normal soft tissues. XR/[place] [id number] IMPRESSION: 1. LEFT AC joint separation most pronounced with weightbearing. 2. Normal RIGHT AC joint.
== END 2024-06-11 12:45 | disposition home or self-care (01) ==
PROVIDERS: Visit Provider Internal Medicine
DX: S42.002K Fracture of unspecified part of left clavicle, subsequent encounter for fracture with nonunion (principal); X58.XXXD Exposure to other specified factors, subsequent encounter; R93.7 Abnormal findings on diagnostic imaging of other parts of musculoskeletal system
CPT/HCPCS: 73050